=== PATIENT | male | born 1945 | race Caucasian/White ===

== ENCOUNTER → 2018-08-09 12:56 | Outpatient (CLI) | payer OTHER, SELFPAY ==
--- NOTE | 2018-08-09 | DI.ECHO.S_ITS ---
[facility] +---------+ : : [address] : [place] : : : : [id number] : : : : Phone: [phone]---------+ Echocardiogram Report + + :Name: ASHLI RAMÍREZ Study Date: 08/09/2018 Height: 70 in : :[facility] Exam Location: [place] Weight: 206 lb : : Gender: Male BSA: 2.1 m2 : :: 1945 Age: 72 yrs BP: 140/90 mmHg: :Reason For Study: CHF : : Performed By: Amy Givens : :Referring: MADELINE WASSERMAN : + + Interpretation Summary The left ventricle is normal in size. Left ventricular systolic function is low normal. The ejection fraction is estimated to be 50-55%. There are no focal wall motion abnormalities. The right ventricle is borderline dilated. Right ventricular systolic function is borderline reduced. The right ventricular systolic pressure is estimated to be at least 23 mmHg based on an estimated right atrial pressure of 3 mm Hg. The left atrium is severely dilated. The right atrium is moderately dilated. There is no significant valvular heart disease. The ascending aorta is mildly enlarged. The aortic arch is mildly enlarged. Procedure: A two-dimensional transthoracic echocardiogram with color flow and Doppler was performed. The study quality was technically adequate. There is no prior echocardiogram noted for this patient. The patient was in atrial fibrillation with rapid ventricular response during the exam with a heart rate exceeding 100 bpm. Left Ventricle: The left ventricle is normal in size. Proximal septal thickening is noted. Left ventricular systolic function is low normal. The ejection fraction is estimated to be 50-55%. There are no focal wall motion abnormalities. Diastolic function could not be accurately assessed due to atrial fibrillation. Right Ventricle: The right ventricle is borderline dilated. Right ventricular systolic function is borderline reduced. Atria: The left atrium is severely dilated. The right atrium is moderately dilated. There is no Doppler evidence for an interatrial shunt. Mitral Valve: The mitral valve is normal. There is trace mitral regurgitation. Aortic Valve: The aortic valve is trileaflet. There is mild aortic valve sclerosis. The aortic valve opens well. There is trace aortic regurgitation. Tricuspid Valve: The tricuspid valve is normal. There is mild tricuspid regurgitation. The right ventricular systolic pressure is estimated to be at least 23 mmHg based on an estimated right atrial pressure of 3 mm Hg. Pulmonic Valve: The pulmonic valve is not well visualized. There is trace pulmonic regurgitation. There is no significant valvular heart disease. Great Vessels: The aortic root is normal size. The ascending aorta is mildly enlarged. The aortic arch is mildly enlarged. The pulmonary artery is normal size. The IVC is of normal diameter and collapses greater than 50% with a sniff. This suggests a low right atrial pressure of 3 mm Hg. Pericardium/ Pleura There is no pericardial effusion. There is no pleural effusion. MMode/2D Measurements & Calculations LVIDd: 5.1 cm LVOT diam: 2.4 cm LVIDs: 3.8 cm Ao root diam: 3.8 cm FS: 25.3 % asc Aorta Diam: 3.9 cm EPSS: 1.2 cm Ao Arch Diam (Prox Trans): 3.3 cm IVSd: 0.91 cm LVPWd: 0.92 cm LV santos. diameter/BSA (cm/m^2): 2.4 LV sys. diameter/BSA (cm/m^2): 1.8 LA A2 area: 36.0 cm2 RA long axis: 6.0 cm LA A4 area: 33.0 cm2 RA area: 25.3 cm2 LA length (vol): 6.9 cm RA vol: 90.9 ml LA vol: 145.5 ml RA : 43.0 ml/m2 LA vol index: 68.8 ml/m2 IVC diam: 1.9 cm RVD1 (basal): 4.3 cm TAPSE: 1.5 cm Doppler Measurements & Calculations Ao V2 max: 107.8 cm/sec LVOT Max Lc: 57.9 cm/sec Ao V2 mean: 71.1 cm/sec LV V1 max P.4 mmHg Ao max P.7 mmHg LV V1 VTI: 10.8 cm Ao mean P.4 mmHg DARCI(I,D): 2.9 cm2 Ao V2 VTI: 17.3 cm DARCI(V,D): 2.5 cm2 sev ratio: 0.62 DARCI indexed to BSA (cm^2/m^2): 1.4 MV E max lc: 63.3 cm/sec TR max lc: 223.4 cm/sec TR max P.0 mmHg PA V2 max: 60.5 cm/sec PA V2 mean: 40.3 cm/sec PA mean P.77 mmHg PA pr(Accel): 24.9 mmHg Reading Physician:[id number]
== END ==
PROVIDERS: Family Provider Internal Medicine; PCP Specialist; Visit Provider Physician Assistant
DX: I08.2 Rheumatic disorders of both aortic and tricuspid valves (principal); I50.9 Heart failure, unspecified
CPT/HCPCS: 93306